=== PATIENT | male | born 1970 | race Caucasian/White ===

== ENCOUNTER 2016-04-01 08:35 | Inpatient (IN) | payer MEDICARE ==
[~2016-04-01] VITALS: Ht 185.4 cm; Wt 77.0 kg
[2016-04-01] VITALS (11 sets, daily range): BP systolic 136–199; BP diastolic 77–109; PULSE 79–115; RESP 16–20; TEMP 98.2–98.3; O2SAT 97–100
[~2016-04-01 08:35] MED LIST: DILA8TAB4 PO; LANTUS2P SQ; NOVOLOGP2 SQ; PROM25TA5 PO; ZOFR8TAB PO
[2016-04-01] MEDS ORDERED: SODIUM CHLOR 0.9% 1000 ML INJ 1,000 ML IV SCH (09:13)
[2016-04-01] MEDS ORDERED: SODIUM CHLORIDE 0.9% FLUSH 5 ML FLUSH IVF PRN (09:15)
[2016-04-01] MEDS ORDERED: PANTOPRAZOLE SODIUM 40 MG VIAL IVP ONE (09:15)
[2016-04-01] MEDS ORDERED: ONDANSETRON HCL 4 MG/2 ML VIAL IM ONE (09:15)
[2016-04-01] MEDS ORDERED: HYDROmorphone HCL PF 1 MG/ML VIAL IM ONE (09:15)
--- NOTE | 2016-04-01 09:28 | PD ---
HPI Chief Complaint: Abdominal Pain Time Seen by Provider: 09:13 Travel History International Travel<30 days: No Contact w/Intl Traveler<30days: No Traveled to known affect area: No History of Present Illness HPI 45-year-old male with history of chronic gastroparesis and abdominal pains, had previously had a vagal stimulator placed, has had worsening of symptoms since placement, has had multiple PICC lines, central lines, and IV lines in the past , was seen yesterday for nausea, vomiting, released with symptomatic relief. He returns today because he states that he has not had a chance to fill the medications but states that he is feeling worse again, very nauseous, vomiting 1 this morning, and having worsening in symptoms again. He denies any fevers or any new symptoms. Modifying Factors: None Associated Signs & Symptoms: Abdominal pains, nausea, vomiting Risk Factors: History of chronic abdominal pains and gastroparesis PFSH Past Medical History Diabetes: Yes Patient Takes Glucophage: No Gastrointestinal Disorders: Yes (GASTROPARESIS) Immunizations Current: Yes Tetanus Vaccination: > 5 Years Influenza Vaccination: No Past Surgical History Abdominal Surgery: Yes (G&J TUBE PLACED AND REMOVED; experimental stimulator for gastroparesis) Body Medical Devices: EXPERIMENTAL STIMULATOR Other Surgery: Yes (LEFT CHEST PORT REMOVED R/T INFECTION, MULTIPLE PICC LINES INSERTED&REMOVED) Social History Alcohol Use: No Tobacco Use: Yes (occasional) Substance Use: No Allergies-Medications (Allergen,Severity, Reaction): Coded Allergies: Compazine (Verified Allergy, Severe, Anaphylaxis, 04/01/16) Reglan (Verified Allergy, Severe, Anaphylaxis, 04/01/16) Adhesives (Verified Allergy, Intermediate, Rash, 04/01/16) "PEELS MY SKIN OFF" Uncoded Allergies: TEGADERM (Allergy, Severe, 05/19/15) "PEELS MY SKIN OFF" Reported Meds & Prescriptions Reported Meds & Active Scripts Active Reported Novolog Inj (Insulin Aspart) 1,000 Unit/10 Ml Vial 0 SQ DIRECTED Sliding Scale as directed. Lantus Inj (Insulin Glargine) 1,000 Unit/10 Ml Vial 20 Units SQ HS Phenergan (Promethazine HCl) 25 Mg Tab 25 Mg PO Q6H PRN Zofran (Ondansetron HCl) 8 Mg Tab 8 Mg PO TID Dilaudid (Hydromorphone HCl) 8 Mg Tab 8 Mg PO Q4HR PRN Review of Systems Except as stated in HPI: all other systems reviewed are Neg Physical Exam Narrative GENERAL: Well-nourished, well-developed middle age white male patient in mild distress. SKIN: Warm and dry. HEAD: Normocephalic. EYES: No scleral icterus. No injection or drainage. NECK: Supple, trachea midline. CARDIOVASCULAR: Regular rate and rhythm without murmurs, gallops, or rubs. RESPIRATORY: Breath sounds equal bilaterally. No accessory muscle use. GASTROINTESTINAL: Abdomen soft, non-tender, nondistended. MUSCULOSKELETAL: No cyanosis, or edema. BACK: Nontender without obvious deformity. No CVA tenderness. Data Data Last Documented VS Vital Signs Date Time Temp Pulse Resp B/P Pulse Ox O2 Delivery O2 Flow Rate FiO2 04/01/16 12:41 95 18 187/90 97 Room Air 04/01/16 08:43 98.2 Orders Complete Blood Count With Diff (04/01/16 09:13) Comprehensive Metabolic Panel (04/01/16 09:13) Lipase (04/01/16 09:13) Iv Access Insert/Monitor (04/01/16 09:13) Ecg Monitoring (04/01/16 09:13) Oximetry (04/01/16 09:13) Pantoprazole Inj (Protonix Inj) (04/01/16 09:15) Sodium Chlor 0.9% 1000 Ml Inj (Ns 1000 M (04/01/16 09:13) Sodium Chloride 0.9% Flush (Ns Flush) (04/01/16 09:15) Ondansetron Inj (Zofran Inj) (04/01/16 09:15) Hydromorphone Pf Inj (Dilaudid Pf Inj) (04/01/16 09:15) Consult Vascular Access Team (04/01/16 ) Vascular Access (04/01/16 09:44) Vascular Poc Ultrasound (04/01/16 ) Hydromorphone Pf Inj (Dilaudid Pf Inj) (04/01/16 10:45) Vascular Poc Ultrasound (04/01/16 ) Diphenhydramine Inj (Benadryl Inj) (04/01/16 12:30) Admit Order (Ed Use Only) (04/01/16 13:42) Labs Laboratory Tests Test 04/01/16 12:00 White Blood Count 7.6 TH/MM3 Red Blood Count 3.64 MIL/MM3 Hemoglobin 10.0 GM/DL Hematocrit 30.1 % Mean Corpuscular Volume 82.8 FL Mean Corpuscular Hemoglobin 27.4 PG Mean Corpuscular Hemoglobin 33.1 % Concent Red Cell Distribution Width 14.8 % Platelet Count 410 TH/MM3 Mean Platelet Volume 7.6 FL Neutrophils (%) (Auto) 76.4 % Lymphocytes (%) (Auto) 14.9 % Monocytes (%) (Auto) 6.3 % Eosinophils (%) (Auto) 1.2 % Basophils (%) (Auto) 1.2 % Neutrophils # (Auto) 5.8 TH/MM3 Lymphocytes # (Auto) 1.1 TH/MM3 Monocytes # (Auto) 0.5 TH/MM3 Eosinophils # (Auto) 0.1 TH/MM3 Basophils # (Auto) 0.1 TH/MM3 CBC Comment DIFF FINAL Differential Comment Sodium Level 136 MEQ/L Potassium Level 4.1 MEQ/L Chloride Level 99 MEQ/L Carbon Dioxide Level 29.5 MEQ/L Anion Gap 8 MEQ/L Blood Urea Nitrogen 11 MG/DL Creatinine 1.11 MG/DL Estimat Glomerular Filtration 72 ML/MIN Rate Random Glucose 295 MG/DL Calcium Level 8.3 MG/DL Total Bilirubin 0.4 MG/DL Aspartate Amino Transf 24 U/L (AST/SGOT) Alanine Aminotransferase 24 U/L (ALT/SGPT) Alkaline Phosphatase 128 U/L Total Protein 6.2 GM/DL Albumin 2.9 GM/DL Lipase 66 U/L MDM Medical Decision Making Medical Screen Exam Complete: Yes Emergency Medical Condition: Yes Medical Record Reviewed: Yes Interpretation(s) Laboratory Tests Test 04/01/16 12:00 Red Blood Count 3.64 MIL/MM3 (4.50-5.90) Hemoglobin 10.0 GM/DL (13.0-17.0) Hematocrit 30.1 % (39.0-51.0) Neutrophils (%) (Auto) 76.4 % (16.0-70.0) Estimat Glomerular Filtration 72 ML/MIN (>89) Rate Random Glucose 295 MG/DL (74-106) Calcium Level 8.3 MG/DL (8.5-10.1) Alkaline Phosphatase 128 U/L (45-117) Total Protein 6.2 GM/DL (6.4-8.2) Albumin 2.9 GM/DL (3.4-5.0) Lipase 66 U/L (73-393) Differential Diagnosis Abdominal pain, nausea and vomitinggastroparesis versus acute on chronic abdominal pain versus dehydration versus metabolic issues versus obstruction versus malingering Narrative Course Lab work did not show any signs of significant metabolic issues at this point. Patient had refused to get x-rays done, complaining that he has had multiple x- ray films in the past. Abdomen is not distended on exam. However, patient is returning for the second day regarding this issue, appears to have acute on chronic abdominal pain, required multiple medication doses. At this point, my plan would be to admit him as an observation for pain control and further evaluation. Case was discussed with family practice resident service for admission. Diagnosis Primary Impression: Acute abdominal pain Admitting Information Admitting Physician Requests: Admit Mally Feliciano MD Apr 01, 2016 09:28
[2016-04-01] MEDS ORDERED: HYDROmorphone HCL PF 2 MG/ML VIAL IV PUSH ONE (10:45)
[2016-04-01 12:20] LABS: AUTOMATED NEUTROPHIL # 5.8 TH/MM3 (1.8-7.7); BASOPHIL # 0.1 TH/MM3 (0-0.2); BASOPHIL % 1.2 % (0.0-2.0); EOSINOPHIL # 0.1 TH/MM3 (0-0.4); EOSINOPHIL % 1.2 % (0.0-4.0); HEMATOCRIT 30.1 % (39.0-51.0); HEMO FLAGS DIFF FINAL; LYMPH % 14.9 % (9.0-44.0); LYMPHOCYTE # 1.1 TH/MM3 (1.0-4.8); MEAN CELL VOLUME 82.8 FL (80.0-100.0); MEAN CORPUSCULAR HEMOGLOBIN 27.4 PG (27.0-34.0); MEAN CORPUSCULAR HGB CONC 33.1 % (32.0-36.0); MONO % 6.3 % (0.0-8.0); NEUT % 76.4 % (16.0-70.0); PLATELET COUNT 410 TH/MM3 (150-450); RED BLOOD COUNT 3.64 MIL/MM3 (4.50-5.90); RED CELL DISTRIBUTION WIDTH 14.8 % (11.6-17.2); WHITE BLOOD COUNT 7.6 TH/MM3 (4.0-11.0)
[2016-04-01] MEDS ORDERED: diphenhydrAMINE HCL 50 MG/ML VIAL IV PUSH ONE (12:30)
[2016-04-01 12:37] LABS: ALT (GPT) 24 U/L (12-78); ANION GAP 8 MEQ/L (5-15); AST (GOT) 24 U/L (15-37); BICARBONATE 29.5 MEQ/L (21.0-32.0); BLOOD UREA NITROGEN 11 MG/DL (7-18); CHLORIDE 99 MEQ/L (98-107); GLOMERULAR FILTRATION RATE 72 ML/MIN (>89); POTASSIUM 4.1 MEQ/L (3.5-5.1); SODIUM (NA) 136 MEQ/L (136-145)
[2016-04-01 12:39] LABS: ALKALINE PHOSPHATASE 128 U/L (45-117); TOTAL BILIRUBIN ADULT 0.4 MG/DL (0.2-1.0)
[2016-04-01] MEDS ORDERED: HYDROmorphone HCL PF 1 MG/ML VIAL IV PUSH ONE (14:15)
[2016-04-01] MEDS ORDERED: ONDANSETRON HCL 4 MG/2 ML VIAL IVP PRN (14:45)
[2016-04-01] MEDS ORDERED: NALOXONE HCL 0.4 MG/ML AMP IV PRN (14:45)
--- NOTE | 2016-04-01 14:57 | HHI.HP ---
HPI Service Family Medicine Primary Care Physician No Primary Care Physician Admission Diagnosis acute on chronic abdominal pain/pain control Diagnoses: International Travel<30 Days: No Contact w/Intl Traveler<30days: No Known Affected Area: No History of Present Illness 45-year-old male with a past medical history significant for chronic abdominal pain secondary to vagal stimulator placement for gastroparesis from diabetes presents to the ED for the second day in a row with acute on chronic abdominal pain. The patient lives in [place] and had his second vagal stimulator placed 2 years ago. He endorses 3 days of dry heaving/emesis that is bilious but nonbloody. He states he often has these episodes of acute on chronic abdominal pain that require hospitalization and management with pain medications. He is on oral Dilaudid at home, 8 mg 34 times per day. Patient denies any chest pain /shortness of breath. In the emergency department, the patient refused any imaging. Labs were unremarkable. (Doris Paz MD R3) Review of Systems Other Denies fever or chills Denies blurry vision, otorrhea, rhinorrhea Denies sore throat and cough No chest pain, palpitations, shortness of breath Positive abdominal pain per history of present illness Denies constipation/diarrhea. Nausea/vomiting per history of present illness Denies muscle pain/weakness No rashes (Doris Paz MD R3) Past Family Social History Past Medical History Type 1 diabetes mellitus Gastroparesis status post vagal stimulator placement Past Surgical History Physical stimulator placement 2 G-tube placement G-tube placement Port placement Left femur repair Reported Medications Reported Meds & Active Scripts Active Reported Novolog Inj (Insulin Aspart) 1,000 Unit/10 Ml Vial 0 SQ DIRECTED Sliding Scale as directed. Lantus Inj (Insulin Glargine) 1,000 Unit/10 Ml Vial 20 Units SQ HS Phenergan (Promethazine HCl) 25 Mg Tab 25 Mg PO Q6H PRN Zofran (Ondansetron HCl) 8 Mg Tab 8 Mg PO TID Dilaudid (Hydromorphone HCl) 8 Mg Tab 8 Mg PO Q4HR PRN (Doris Paz MD R3) Allergies: Coded Allergies: Compazine (Verified Allergy, Severe, Anaphylaxis, 04/01/16) Reglan (Verified Allergy, Severe, Anaphylaxis, 04/01/16) Adhesives (Verified Allergy, Intermediate, Rash, 04/01/16) "PEELS MY SKIN OFF" Uncoded Allergies: TEGADERM (Allergy, Severe, 05/19/15) "PEELS MY SKIN OFF" Family History Both parents are healthy. Social History Patient lives in [place]. He has not worked in many years and states that he remains on medical leave secondary to his medical issues. He occasionally smokes cigarettes. He denies any alcohol. He states that he has occasionally tried marijuana for his abdominal issues but that this has not worked. He denies all other illicit drugs. (Doris Paz MD R3) Physical Exam Vital Signs Vital Signs Date Time Temp Pulse Resp B/P Pulse Ox O2 Delivery O2 Flow Rate FiO2 04/01/16 12:41 95 18 187/90 97 Room Air 04/01/16 12:04 85 18 199/109 98 Room Air 04/01/16 12:03 18 98 Room Air 04/01/16 11:06 90 18 179/101 97 Room Air 04/01/16 08:57 88 18 192/109 100 Room Air 04/01/16 08:43 98.2 97 20 184/105 99 Room Air Physical Exam Gen.: No acute distress Head: Normocephalic. Atraumatic. EENT: Pupils equal round and reactive to light. Nose without drainage. Airway intact. Throat without injection. Cardiovascular: Regular rate and rhythm. No murmurs, rubs or gallops. Respiratory: Lungs clear to auscultation bilaterally. No wheezes or rhonchi. Abdomen: Soft, nondistended. Tenderness to palpation throughout, worse in left upper quadrant. No peritoneal signs. Musculoskeletal: No gross deformities. No edema. Skin: No obvious rashes or erythema. Neuro: Sensory and motor grossly intact. Cranial nerves II through XII grossly intact. Psych: Appropriate mood and affect Laboratory Laboratory Tests Test 04/01/16 12:00 White Blood Count 7.6 Red Blood Count 3.64 Hemoglobin 10.0 Hematocrit 30.1 Mean Corpuscular Volume 82.8 Mean Corpuscular Hemoglobin 27.4 Mean Corpuscular Hemoglobin 33.1 Concent Red Cell Distribution Width 14.8 Platelet Count 410 Mean Platelet Volume 7.6 Neutrophils (%) (Auto) 76.4 Lymphocytes (%) (Auto) 14.9 Monocytes (%) (Auto) 6.3 Eosinophils (%) (Auto) 1.2 Basophils (%) (Auto) 1.2 Neutrophils # (Auto) 5.8 Lymphocytes # (Auto) 1.1 Monocytes # (Auto) 0.5 Eosinophils # (Auto) 0.1 Basophils # (Auto) 0.1 CBC Comment DIFF FINAL Differential Comment Sodium Level 136 Potassium Level 4.1 Chloride Level 99 Carbon Dioxide Level 29.5 Anion Gap 8 Blood Urea Nitrogen 11 Creatinine 1.11 Estimat Glomerular Filtration 72 Rate Random Glucose 295 Calcium Level 8.3 Total Bilirubin 0.4 Aspartate Amino Transf 24 (AST/SGOT) Alanine Aminotransferase 24 (ALT/SGPT) Alkaline Phosphatase 128 Total Protein 6.2 Albumin 2.9 Lipase 66 (Doris Paz MD R3) Result Diagram: 04/01/16 1200 04/01/16 1200 Assessment and Plan Assessment and Plan 45-year-old male with chronic gastroparesis and abdominal pain from physical stimuli to her placement and diabetes mellitus presents to the emergency department with an acute exacerbation of his abdominal pain. 1. Abdominal pain with emesis. Patient initially refused all imaging in the emergency department, however has now agreed to an abdominal series. He will not have a CT scan despite my advising him that this should be done to rule out obstruction and other abdominal pathologies. He states that he has had 14 CT scans in the past and his previous new car inspector advised him not to have any more. Patient with tolerance to pain medication as he takes by mouth Dilaudid at home. Dilaudid 2 mg every 2 hours when necessary pain Abdominal x-rays pending Regular diet which patient requested as he states he knows what is best for him to eat 2. Diabetes mellitus, type I. Patient on 20 units of Lantus daily at bedtime and sliding scale NovoLog at home. Continue Lantus High dose NovoLog sliding scale insulin 3. FEN Hep-Lock IV as patient's initial labs show no abnormalities or dehydration Regular diet per patient's request Anticoagulation with heparin 5000 units every 8 hours Code Status Full code (Doris Paz MD R3) Problem List: (1) Chronic abdominal pain Status: Chronic (2) Acute abdominal pain Status: Acute (3) Diabetes mellitus type 1 Status: Chronic (Doris Paz MD R3) Doris Paz MD R3 Apr 01, 2016 14:57 Bibiana Golden MD Apr 03, 2016 08:42
[2016-04-01] MEDS: HYDROmorphone HCL PF 2 MG/ML VIAL IV PUSH PRN ×5 (15:21→23:47)
[2016-04-01] MEDS: INSULIN ASPART SUPPLEMENTAL SCALE SQ SCH ×2 (16:00→21:00)
[2016-04-01] MEDS: HEPARIN SODIUM - SQ 10,000 UNITS/ML VIAL SQ SCH (16:00)
[2016-04-01] MEDS: diphenhydrAMINE HCL 50 MG/ML VIAL IV PUSH PRN ×2 (16:39→21:04)
[2016-04-01] MEDS ORDERED: cloNIDine HCL 0.1 MG TAB PO PRN (17:30)
[2016-04-01] MEDS: SODIUM CHLORIDE 0.9% FLUSH 5 ML FLUSH FLUSH SCH (19:45)
--- NOTE | 2016-04-01 20:25 | RADRPT ---
EXAM DATE/TIME: 04/01/2016 19:08 [facility] COMPARISON: No previous studies available for comparison. INDICATIONS : Abdominal pain for two days. MEDICAL HISTORY : None. SURGICAL HISTORY : Stimulator. ENCOUNTER: Initial ACUITY: 2 days PAIN SCORE: 8/10 LOCATION: Bilateral upper quadrant abdomen. FINDINGS: There is a 3 mm calcification projecting over the right kidney. The bowel gas pattern is normal. Free air is not seen. There is some increased density at the medial right lung base which may represent some degree of atelectasis or consolidation. The patient has an electronic device pro jecting over the medial left midabdomen. Surgical hardware is seen at the proximal left femur. CONCLUSION: 1. 3 mm calcification projecting over the right kidney. 2. Focal area of consolidation or atelectasis at the medial right lung base. New Garvin MD on April 01, 2016 at 20:12 Board Certified Radiologist. This report was verified electronically.
[2016-04-01] MEDS ORDERED: INSULIN DETEMIR 100 UNITS/ML VIAL SQ SCH (21:00)
[2016-04-01] MEDS ORDERED: GLUCAGON 1 MG/ML VIAL IM ONE (22:45)
[2016-04-01] MEDS ORDERED: DEXTROSE 50% IN WATER 50 ML VIAL(D50) IV PUSH PRN (22:45)
[2016-04-01] MEDS: INSULIN DETEMIR 100 UNITS/ML VIAL SQ SCH (23:19)
[2016-04-02 00:05] VITALS: BP 151/94; PULSE 106; RESP 16; TEMP 98.1; O2SAT 96
[2016-04-02] MEDS: HYDROmorphone HCL PF 2 MG/ML VIAL IV PUSH PRN ×10 (02:04→23:18)
[2016-04-02] MEDS: diphenhydrAMINE HCL 50 MG/ML VIAL IV PUSH PRN ×5 (02:11→22:36)
[2016-04-02 04:17] VITALS: BP 137/82; PULSE 87; RESP 16; TEMP 97.7; O2SAT 98
[2016-04-02] MEDS: INSULIN ASPART SUPPLEMENTAL SCALE SQ SCH ×4 (06:11→23:16)
[2016-04-02 08:00] VITALS: BP 155/84; PULSE 80; RESP 18; TEMP 96.6; O2SAT 99
[2016-04-02] MEDS: HEPARIN SODIUM - SQ 10,000 UNITS/ML VIAL SQ SCH ×3 (08:00→16:00)
[2016-04-02] MEDS: SODIUM CHLORIDE 0.9% FLUSH 5 ML FLUSH FLUSH SCH ×2 (08:45→21:23)
[2016-04-02] MEDS: GLUCAGON 1 MG/ML VIAL OTHER PRN ×2 (09:36→15:07)
[2016-04-02 12:00] VITALS: BP 170/110; PULSE 86; RESP 18; TEMP 97; O2SAT 98
--- NOTE | 2016-04-02 12:57 | RADRPT ---
EXAM DATE/TIME: 04/02/2016 12:20 [facility] COMPARISON: No previous studies available for comparison. INDICATIONS : Cough. MEDICAL HISTORY : Gastroparesis. SURGICAL HISTORY : abdominal pain stimulator ENCOUNTER: Initial ACUITY: 1 day PAIN SCORE: 0/10 LOCATION: Bilateral chest FINDINGS: There is a prominence of bronchovascular markings overlying the lower thoracic spine on lateral view which could represent a minimal or early infiltrate likely in the left lower lobe.. CONCLUSION: Questionable minimal early infiltrate left lower lobe as described Colby Robert MD on April 02, 2016 at 12:54 Board Certified Radiologist. This report was verified electronically.
[2016-04-02] MEDS ORDERED: LORazepam 0.5 MG TAB PO PRN (15:00)
--- NOTE | 2016-04-02 15:14 | HHI.FPPN ---
Subjective Subjective Patient seen and examined with the resident team. Case reviewed and discussed Please refer to resident H&P for further details regarding HPI, ROS, PMH, SurgHx , SocHx, and FH In summary, patient is a 45yoM with a history of insulin-dependent DM with secondary gastroparesis presenting with recurrent, intractable nausea, vomiting and abdominal pain He is seen in his hospital room this am. He is quite anxious appearing and concerned about getting enough hardboiled eggs from the cafeteria. He reports his abdominal pain is improved from admission. No emesis overnight. [facility] Objective Objective Last Impressions Chest X-Ray 04/02/16 0000 Signed Impressions: Service Date/Time: Saturday, April 02, 2016 12:20 - CONCLUSION: Questionable minimal early infiltrate left lower lobe as described Colby Robert MD Abdomen X-Ray 04/01/16 0000 Signed Impressions: Service Date/Time: Friday, April 01, 2016 19:08 - CONCLUSION: 1. 3 mm calcification projecting over the right kidney. 2. Focal area of consolidation or atelectasis at the medial right lung base. New Garvin MD Vital Signs 04/01/16 04/01/16 04/01/16 04/01/16 15:26 16:32 17:25 17:40 Pulse 79 81 85 Resp 18 18 18 18 B/P 190/99 180/91 174/101 Pulse Ox 99 99 99 O2 Delivery Room Air Room Air Room Air 04/01/16 04/01/16 04/02/16 04/02/16 18:29 20:13 00:05 04:17 Temp 98.3 98.3 98.1 97.7 Pulse 115 103 106 87 Resp 16 18 16 16 B/P 158/96 136/77 151/94 137/82 Pulse Ox 97 97 96 98 04/02/16 04/02/16 08:00 12:00 Temp 96.6 97.0 Pulse 80 86 Resp 18 18 B/P 155/84 170/110 Pulse Ox 99 98 INTAKE & OUTPUT 04/02/16 07:00 Intake Total 1200 ml Output Total 850 ml Balance 350 ml Physical exam GENERAL: Thin male, mildly anxious. SKIN: Warm and dry. Mild pallor HEAD: Normocephalic. AT EYES: No scleral icterus. No injection or drainage. ENT: Op clear. Poor dentition. MM slightly dry NECK: Supple, trachea midline. No JVD or lymphadenopathy. CARDIOVASCULAR: Regular rate and rhythm without murmurs, gallops, or rubs. RESPIRATORY: Mild bibasilar crackles. no wheezing, no increased effort. No accessory muscle use. GASTROINTESTINAL: Abdomen soft,mild diffuse tenderness, nondistended. Palpable stimulator over abdomen. MUSCULOSKELETAL: No cyanosis, or edema. BACK: Nontender without obvious deformity. No CVA tenderness. NEURO: Awake and alert. Normal speech. CN grossly intact Assessment Assessment 45yoM admitted with: Intractable abdominal pain Gastroparesis Insulin-dependent DM Intractable emesis Inability to tolerate PO PNA, CAP PLAN PLAN Pain control ABD XR CXR Empiric antibiotic therapy for CAP Dietary consult Consider [facility] and/or request records from [place] (prior hospitalizations) Heparin for DVT proph Patient seen and examined. Case reviewed and discussed Agree with plan of care as discussed with me and documented in the resident note. Bibiana Golden MD Apr 02, 2016 15:14
[2016-04-02 16:00] VITALS: BP 154/76; PULSE 84; RESP 20; TEMP 96.8; O2SAT 94
[2016-04-02] MEDS ORDERED: cefTRIAXone INJ 1,000 MG in SODIUM CHLORIDE 0.9% INJ 100 ML IV SCH (16:00)
[2016-04-02] MEDS ORDERED: INSULIN ASPART SUPPLEMENTAL SCALE SQ SCH (16:00)
[2016-04-02 20:00] VITALS: BP 171/88; PULSE 95; RESP 18; TEMP 97.1; O2SAT 95
[2016-04-02] MEDS: INSULIN DETEMIR 100 UNITS/ML VIAL SQ SCH (23:16)
[2016-04-03] VITALS (8 sets, daily range): BP systolic 127–186; BP diastolic 80–103; PULSE 85–96; RESP 16–20; TEMP 97.2–98.6; O2SAT 96–100
[2016-04-03] MEDS: HYDROmorphone HCL PF 2 MG/ML VIAL IV PUSH PRN ×6 (01:43→13:03)
[2016-04-03] MEDS: diphenhydrAMINE HCL 50 MG/ML VIAL IV PUSH PRN ×5 (02:51→20:14)
[2016-04-03] MEDS: INSULIN ASPART SUPPLEMENTAL SCALE SQ SCH ×4 (06:30→21:00)
[2016-04-03] MEDS: HEPARIN SODIUM - SQ 10,000 UNITS/ML VIAL SQ SCH ×3 (08:00→16:00)
[2016-04-03] MEDS: SODIUM CHLORIDE 0.9% FLUSH 5 ML FLUSH FLUSH SCH ×2 (09:01→20:15)
[2016-04-03] MEDS: INSULIN DETEMIR 100 UNITS/ML VIAL SQ SCH ×2 (09:03→21:00)
--- NOTE | 2016-04-03 09:53 | RADRPT ---
EXAM DATE/TIME: 04/03/2016 08:45 [facility] COMPARISON: CHEST PA & LAT, April 02, 2016, 12:20. INDICATIONS : Infiltrate. MEDICAL HISTORY : None. SURGICAL HISTORY : None. ENCOUNTER: Initial ACUITY: 1 day PAIN SCORE: Non-responsive. LOCATION: Bilateral chest FINDINGS: Portable AP view of the chest demonstrates a normal-sized cardiac silhouette. Lungs are underinflated with mild atelectasis at the bases. No effusion, consolidation, or pneumothorax is identified. Bones and soft tissues demonstrate no acute finding. CONCLUSION: Underinflated examination with mild atelectasis at lung bases. Otherwise, no acute cardiopulmonary ab normality is identified. New Mari MD on April 03, 2016 at 9:50 Board Certified Radiologist. This report was verified electronically.
[2016-04-03] MEDS: GLUCAGON 1 MG/ML VIAL OTHER PRN ×2 (11:18→23:22)
--- NOTE | 2016-04-03 11:50 | HHI.FPPN ---
Subjective Remarks Mr. Bean was afebrile with HTN overnight. Patient with hyperglycemia this morning (488mg/dl); decreased subsequently. Patient reports continued abdominal pain. No other concerns reported. Patient expressed some frustration at obtaining prior records but provided prior hospital information. (John Westbrook MD R2) Objective Vitals Vital Signs Date Time Temp Pulse Resp B/P Pulse Ox O2 Delivery O2 Flow Rate FiO2 04/03/16 11:38 98.2 96 20 127/90 96 04/03/16 07:50 97.2 87 20 178/97 98 04/03/16 04:00 97.6 93 18 178/102 100 04/03/16 00:00 97.6 85 18 140/86 98 04/02/16 20:00 97.1 95 18 171/88 95 04/02/16 16:00 96.8 84 20 154/76 94 04/02/16 12:00 97.0 86 18 170/110 98 I/O 04/02/16 04/02/16 04/02/16 04/03/16 04/03/16 04/03/16 07:00 15:00 23:00 07:00 15:00 23:00 Intake Total 550 ml 960 ml 150 ml 240 ml Balance 550 ml 960 ml 150 ml 240 ml Intake Oral 550 ml 960 ml 150 ml 240 ml # Voids 6 1 1 # Bowel Movements 0 (John Westbrook MD R2) Result Diagram: 04/01/16 1200 04/01/16 1200 Imaging Last Impressions Chest X-Ray 04/03/16 0000 Signed Impressions: Service Date/Time: March 08:45 - CONCLUSION: Underinflated examination with mild atelectasis at lung bases. Otherwise, no acute cardiopulmonary abnormality is identified. New Mari MD Abdomen X-Ray 04/01/16 0000 Signed Impressions: Service Date/Time: Friday, April 01, 2016 19:08 - CONCLUSION: 1. 3 mm calcification projecting over the right kidney. 2. Focal area of consolidation or atelectasis at the medial right lung base. New Garvin MD Objective Remarks Gen.: No acute distress Head: Normocephalic. Atraumatic. Cardiovascular: Regular rate and rhythm. No murmurs Respiratory: Lungs clear to auscultation bilaterally. No wheezes or rhonchi. Abdomen: Soft, nondistended. Mild tenderness to palpation; no peritoneal signs Musculoskeletal: No gross deformities. No edema. Skin: No obvious rashes or erythema. Neuro: Sensory and motor grossly intact. Cranial nerves grossly intact. Psych: Appropriate mood and affect (John Westbrook MD R2) A/P Assessment and Plan 45-year-old male with chronic gastroparesis: (John Westbrook MD R2) Attending Attestation Patient seen and examined. Case reviewed and discussed Agree with plan of care as discussed with me and documented in the resident note. (Bibiana Golden MD) Problem List: (1) Chronic abdominal pain Status: Chronic Plan: Dilaudid 2 mg every 2 hours when necessary pain -Will attempt to obtain records from prior hospitalization Impression: Abdominal pain with emesis. Patient initially refused all imaging in the emergency department, however has now agreed to an abdominal series. He will not have a CT scan despite my advising him that this should be done to rule out obstruction and other abdominal pathologies. He states that he has had 14 CT scans in the past and his previous infection control preventionist advised him not to have any more. Patient with tolerance to pain medication as he takes by mouth Dilaudid at home. Abdomen XR- 3mm calcification over R kidney. Focal consolidation or atelectasis at R medial lung base (2) Diabetes mellitus type 1 Status: Chronic Plan: Impression: Patient on Lantus 20 U qHS at home. -Levemir 10 U BID -Low dose SSI -Glucagon for hypoglycemia per patient request Blood glucoses have fluctuated significantly during admission (488mg/dl- 33 mg/ dl) (3) DVT Prophylaxis Status: Acute Plan: Bilateral SCD's (4) Fluids, Electrolytes, and Nutrition Status: Acute Plan: Diet: Regular basic Fluids: None Electrolytes: Monitor and replete as needed (John Westbrook MD R2) John Westbrook MD R2 Apr 03, 2016 11:50 Bibiana Golden MD Apr 04, 2016 12:32 (3) DVT Prophylaxis Status: Acute Plan: Bilateral SCD's (4) Fluids, Electrolytes, and Nutrition Status: Acute Plan: Diet: Regular basic Fluids: None Electrolytes: Monitor and replete as needed (John Westbrook MD R2) John Westbrook MD R2 Apr 03, 2016 11:50 Bibiana Golden MD Apr 04, 2016 12:32
[2016-04-03] MEDS ORDERED: HYDROmorphone HCL PF 2 MG/ML VIAL IV PUSH PRN ×2 (15:00→17:00)
[2016-04-03] MEDS ORDERED: HYDROmorphone HCL PF 1 MG/ML VIAL IV PUSH ONE (15:45)
[2016-04-03] MEDS ORDERED: AZITHROMYCIN 250 MG TAB PO SCH (17:00)
[2016-04-03] MEDS: LEVOFLOXACIN 750 MG PREMIX INJ 150 ML IV SCH (17:51)
[2016-04-03] MEDS: HYDROmorphone HCL PF 1 MG/ML VIAL IV PUSH PRN ×3 (18:14→22:21)
[2016-04-04] VITALS (7 sets, daily range): BP systolic 129–193; BP diastolic 62–110; PULSE 58–113; RESP 16–18; TEMP 97.4–98.7; O2SAT 94–100
[2016-04-04] MEDS: HYDROmorphone HCL PF 1 MG/ML VIAL IV PUSH PRN ×11 (00:23→22:12)
[2016-04-04] MEDS: diphenhydrAMINE HCL 50 MG/ML VIAL IV PUSH PRN ×6 (00:23→23:44)
[2016-04-04] MEDS: INSULIN ASPART SUPPLEMENTAL SCALE SQ SCH ×4 (06:47→20:15)
[2016-04-04] MEDS: HEPARIN SODIUM - SQ 10,000 UNITS/ML VIAL SQ SCH ×4 (08:00→23:40)
[2016-04-04] MEDS: SODIUM CHLORIDE 0.9% FLUSH 5 ML FLUSH FLUSH SCH ×2 (09:00→20:16)
[2016-04-04] MEDS: amLODIPine BESYLATE 5 MG TAB PO SCH (09:00)
[2016-04-04] MEDS: INSULIN DETEMIR 100 UNITS/ML VIAL SQ SCH ×2 (09:00→20:08)
[2016-04-04 09:50] LABS: AUTOMATED NEUTROPHIL # 5.3 TH/MM3 (1.8-7.7); BASOPHIL # 0.1 TH/MM3 (0-0.2); BASOPHIL % 1.1 % (0.0-2.0); EOSINOPHIL # 0.2 TH/MM3 (0-0.4); EOSINOPHIL % 2.3 % (0.0-4.0); HEMATOCRIT 35.6 % (39.0-51.0); HEMO FLAGS DIFF FINAL; LYMPH % 21.4 % (9.0-44.0); LYMPHOCYTE # 1.7 TH/MM3 (1.0-4.8); MEAN CORPUSCULAR HEMOGLOBIN 26.9 PG (27.0-34.0); MEAN CORPUSCULAR HGB CONC 32.4 % (32.0-36.0); MONO % 7.1 % (0.0-8.0); NEUT % 68.1 % (16.0-70.0); PLATELET COUNT 474 TH/MM3 (150-450); RED BLOOD COUNT 4.29 MIL/MM3 (4.50-5.90); RED CELL DISTRIBUTION WIDTH 14.8 % (11.6-17.2); WHITE BLOOD COUNT 7.8 TH/MM3 (4.0-11.0)
[2016-04-04 10:11] LABS: BICARBONATE 30.7 MEQ/L (21.0-32.0); POTASSIUM 3.8 MEQ/L (3.5-5.1)
--- NOTE | 2016-04-04 10:26 | HHI.FPPN ---
Subjective Remarks Mr. Bean was afebrile and hypertensive overnight; patient had max SB P193 ( he declined PRN clonidine). Per EMR, patient had some low blood glucoses to low of 62 at 2326 03/04; patient had glucagon administered for these. Glucose of 262 this morning at 0649 ; 5 U low SS given. Patient voiding and stooling normally per EMR. Patient reports abdominal pain, and expresses frustration that his Dilaudid was decreased to 1mg IV q2hrs. Patient reports mild improvement in his abdominal symptoms overall, and estimates ~30% improvement since admission. Patient does not report shortness of breath. (John Westbrook MD R2) Objective Vitals Vital Signs Date Time Temp Pulse Resp B/P Pulse Ox O2 Delivery O2 Flow Rate FiO2 04/04/16 09:31 20 04/04/16 04:14 98.3 66 18 193/109 98 04/04/16 00:00 97.9 89 17 168/89 99 04/03/16 20:54 98.5 92 16 162/90 98 04/03/16 17:51 150/88 04/03/16 15:30 98.6 88 20 186/103 99 Automatic Cuff 04/03/16 13:10 140/80 04/03/16 11:38 98.2 96 20 127/90 96 (John Westbrook MD R2) Result Diagram: 04/04/16 0920 04/04/16 0920 Imaging Last Impressions Chest X-Ray 04/03/16 0000 Signed Impressions: Service Date/Time: March 08:45 - CONCLUSION: Underinflated examination with mild atelectasis at lung bases. Otherwise, no acute cardiopulmonary abnormality is identified. New Mari MD Abdomen X-Ray 04/01/16 0000 Signed Impressions: Service Date/Time: Friday, April 01, 2016 19:08 - CONCLUSION: 1. 3 mm calcification projecting over the right kidney. 2. Focal area of consolidation or atelectasis at the medial right lung base. New Garvin MD Objective Remarks Gen.: No acute distress Cardiovascular: Grossly normal peripheral perfusion. Respiratory: Lungs clear to auscultation bilaterally; no crackling appreciated. Abdomen: Soft, nondistended. Mild tenderness to palpation; no guarding/wincing Musculoskeletal: No edema. Skin: No obvious rashes or erythema. Appears pale Neuro: Sensory and motor grossly intact. Cranial nerves grossly intact. Psych: Patient expressed frustration; was confrontational (John Westbrook MD R2) A/P Assessment and Plan 45-year-old male with chronic gastroparesis: (John Westbrook MD R2) Attending Attestation Patient seen and examined. Case reviewed and discussed Agree with plan of care as discussed with me and documented in the resident note. (Bibiana Golden MD) Problem List: (1) Chronic abdominal pain Status: Chronic Plan: Dilaudid 1 mg every 2 hours when necessary BRKP -Will add Toradol 30mg IV q6 hrs -Will hold and recheck BMP in case NSAID will aggravate renal function -Will add home oral Dilaudid 8mg PO; will make q6hrs -Will attempt to obtain records from prior hospitalization Impression: Abdominal pain with emesis; none during hospitalization. Patient has refused CT scan due to having 14 CT scans. Patient with tolerance to pain medication as he takes by mouth Dilaudid at home. Abdomen XR- 3mm calcification over R kidney. Focal consolidation or atelectasis at R medial lung base (2) Noncompliance Status: Acute Plan: -Attempt to encourage compliance and find common ground -Concern exists for inadequate diagnosis and treatment due to patient refusing care -Will document occurrence report Impression: Patient has refused antibiotic therapy (Levaquin, Azithromycin), laboratory blood work x2, and desire for imaging during hospitalization. This has been associated with patient disrespect towards physician team (3) Diabetes mellitus type 1 Status: Chronic Plan: -Levemir 10 U BID -Low dose SSI -Glucagon for hypoglycemia per patient request Impression: Patient on Lantus 20 U qHS at home. Blood glucoses have fluctuated significantly during admission (488mg/dl- 33 mg/dl) (4) Pneumonia Status: Acute Plan: -Will treat with Levaquin 750mg daily Impression: Patient reports recent respiratory infection. Patient with LLL infiltrate; subsequent AP with underinflation did not show infiltrate Antibiotic History: Ceftriaxone 1gm x2 doses Patient refused prior Azithromycin (5) Acute kidney injury Status: Acute Plan: -Will recheck BMP tomorrow -Will encourage fluid intake -Will start maintenance NS -Monitor I&O -Will initiate Toradol for pain control if Cr improves tomorrow Impression: Cr 0.98 on admission; 1.33 today. Unclear how much patient eating/drinking (6) DVT Prophylaxis Status: Acute Plan: Bilateral SCD's Heparin 5K U q8hrs (7) Fluids, Electrolytes, and Nutrition Status: Acute Plan: Diet: Regular basic Fluids: Maintenance NS Electrolytes: Monitor and replete as needed (John Westbrook MD R2) John Westbrook MD R2 Apr 04, 2016 10:26 Bibiana Golden MD Apr 08, 2016 15:30 Fluids: None Electrolytes: Monitor and replete as needed John Westbrook MD R2 Apr 04, 2016 10:26
[2016-04-04] MEDS ORDERED: HYDROmorphone HCL 4 MG TAB PO PRN (11:45)
[2016-04-04] MEDS: SODIUM CHLOR 0.9% 1000 ML INJ 1,000 ML IV SCH ×2 (13:00→21:33)
[2016-04-04] MEDS: LEVOFLOXACIN 750 MG PREMIX INJ 150 ML IV SCH (18:00)
[2016-04-05] VITALS (7 sets, daily range): BP systolic 135–186; BP diastolic 80–104; PULSE 88–107; RESP 18–20; TEMP 96.2–98.9; O2SAT 94–99
[2016-04-05] MEDS: HYDROmorphone HCL PF 1 MG/ML VIAL IV PUSH PRN ×12 (00:27→23:47)
[2016-04-05] MEDS: diphenhydrAMINE HCL 50 MG/ML VIAL IV PUSH PRN ×5 (04:37→21:45)
[2016-04-05] MEDS: SODIUM CHLOR 0.9% 1000 ML INJ 1,000 ML IV SCH ×3 (05:34→22:41)
[2016-04-05] MEDS: INSULIN ASPART SUPPLEMENTAL SCALE SQ SCH ×4 (06:46→19:52)
[2016-04-05] MEDS: HEPARIN SODIUM - SQ 10,000 UNITS/ML VIAL SQ SCH ×3 (08:00→23:42)
[2016-04-05] MEDS: amLODIPine BESYLATE 5 MG TAB PO SCH ×2 (08:55→09:00)
[2016-04-05] MEDS: INSULIN DETEMIR 100 UNITS/ML VIAL SQ SCH ×2 (08:55→19:51)
[2016-04-05] MEDS: DOCUSATE SODIUM 50 MG/SENNA 8.6 MG TAB PO SCH ×3 (08:56→19:46)
[2016-04-05] MEDS ORDERED: KETOROLAC TROMETHAMINE 60 MG/2 ML (IM) VIAL IM SCH (09:00)
[2016-04-05] MEDS: SODIUM CHLORIDE 0.9% FLUSH 5 ML FLUSH FLUSH SCH ×2 (09:00→19:46)
--- NOTE | 2016-04-05 09:40 | HHI.FPPN ---
Subjective Remarks Mr. Bean was afebrile and persistently hypertensive overnight; patient has been refusing antihypertensives stating that it is due to his pain and that he would like more IV Dilaudid. Patient reports continued abdominal pain, reporting that it is mildly improved since admission. No vomiting reported overnight. Patient states he has not been eating; inconsistent with EMR stating that 80-100% of breakfast and lunch were consumed 04/04. Patient reports normal urine output; urinating "every 10 minutes." Patient does not report shortness of breath. Interview cut short by patient requesting that I leave the room due to increasing his abdominal pain. Objective Vitals Vital Signs Date Time Temp Pulse Resp B/P Pulse Ox O2 Delivery O2 Flow Rate FiO2 04/05/16 07:54 18 04/05/16 07:50 97.0 98 20 186/104 97 04/05/16 04:00 97.7 106 18 174/96 99 04/05/16 00:00 97.7 107 18 179/103 95 04/04/16 20:00 98.7 113 18 136/100 94 04/04/16 16:00 98.1 93 18 191/110 96 04/04/16 16:00 191/110 04/04/16 12:00 98.1 102 16 184/108 98 I/O 04/04/16 04/04/16 04/04/16 04/05/16 04/05/16 04/05/16 06:59 14:59 22:59 06:59 14:59 22:59 Intake Total 1000 ml 1440 ml 1440 ml Balance 1000 ml 1440 ml 1440 ml Intake Oral 1000 ml 1440 ml 1440 ml IV Total 0 ml # Voids 4 4 3 # Bowel Movements 1 0 Result Diagram: 04/04/16 0920 04/04/16 0920 Imaging Last Impressions Chest X-Ray 04/03/16 0000 Signed Impressions: Service Date/Time: March 08:45 - CONCLUSION: Underinflated examination with mild atelectasis at lung bases. Otherwise, no acute cardiopulmonary abnormality is identified. New Mari MD Abdomen X-Ray 04/01/16 0000 Signed Impressions: Service Date/Time: Friday, April 01, 2016 19:08 - CONCLUSION: 1. 3 mm calcification projecting over the right kidney. 2. Focal area of consolidation or atelectasis at the medial right lung base. New Garvin MD Objective Remarks Gen.: No acute distress ENT: Poor dentition Cardiovascular: Grossly normal peripheral perfusion. Respiratory: Lungs clear to auscultation bilaterally; no crackling appreciated. Abdomen: Soft, nondistended. Mild tenderness to palpation; no guarding/wincing Musculoskeletal: No edema. Skin: No obvious rashes or erythema. Appears pale Neuro: Sensory and motor grossly intact. Cranial nerves grossly intact. Psych: Patient confrontational; did not want to continue conversing with myself or nursing staff A/P Assessment and Plan 45-year-old male with chronic gastroparesis: Problem List: (1) Hypertension Status: Acute Plan: -Patient agrees to IV Vasotec x1 -Continue Amlodipine 5mg -Continue PRN Clonidine 0.1mg (SBP >170) Impression: Persistently elevated BP over past several days; patient has declined scheduled amlodipine and PRN antihypertensives (2) Noncompliance Status: Acute Plan: -Attempt to encourage compliance and find common ground -Concern exists for inadequate diagnosis and treatment due to patient refusing care Impression: Patient has refused antihypertensives, antibiotic therapy (Levaquin , Azithromycin), laboratory blood work x2, and desire for imaging during hospitalization. This has been associated with patient disrespect towards physician team and nursing staff (3) Chronic abdominal pain Status: Chronic Plan: Dilaudid 1 mg every 2 hours when necessary BRKP -Will add Toradol 30mg IV q6 hrs -Will hold and recheck BMP in case NSAID will aggravate renal function -Will add home oral Dilaudid 8mg PO; will make q6hrs -Will attempt to obtain records from prior hospitalization Impression: Abdominal pain with emesis; none during hospitalization. Patient has refused CT scan due to having 14 CT scans. Patient with tolerance to pain medication as he takes by mouth Dilaudid at home. Abdomen XR- 3mm calcification over R kidney. Focal consolidation or atelectasis at R medial lung base (4) Diabetes mellitus type 1 Status: Chronic Plan: -Levemir 10 U BID -Low dose SSI -Glucagon for hypoglycemia per patient request Impression: Patient on Lantus 20 U qHS at home. Blood glucoses have fluctuated significantly during admission (488mg/dl- 33 mg/dl) (5) Pneumonia Status: Acute Plan: -Will treat with Levaquin 750mg daily (patient has been refusing) Impression: Patient reports recent respiratory infection. Patient with LLL infiltrate; subsequent AP with underinflation did not show infiltrate Antibiotic History: Ceftriaxone 1gm x2 doses Patient refused prior Azithromycin (6) Acute kidney injury Status: Acute Plan: -Will recheck BMP today -Will encourage fluid intake -Will start maintenance NS -Monitor I&O Impression: Cr 0.98 on admission; 1.33 today. Unclear how much patient eating/drinking (7) DVT Prophylaxis Status: Acute Plan: Bilateral SCD's Heparin 5K U q8hrs (8) Fluids, Electrolytes, and Nutrition Status: Acute Plan: Diet: Regular basic Fluids: Maintenance NS Electrolytes: Monitor and replete as needed John Westbrook MD R2 Apr 05, 2016 09:39
[2016-04-05] MEDS ORDERED: ENALAPRILAT 1.25 MG/ML VIAL IV PUSH ONE (10:00)
[2016-04-05] MEDS: KETOROLAC TROMETHAMINE 30 MG/ML (IVP) VIAL IV PUSH SCH ×3 (11:04→23:47)
[2016-04-05] MEDS: SODIUM CHLORIDE 0.9% FLUSH 5 ML FLUSH FLUSH PRN ×3 (11:05→17:42)
[2016-04-05] MEDS: LEVOFLOXACIN 750 MG PREMIX INJ 150 ML IV SCH (17:48)
[2016-04-05 20:03] LABS: BASOPHIL # 0.2 TH/MM3 (0-0.2); BASOPHIL % 1.2 % (0.0-2.0); EOSINOPHIL # 0.2 TH/MM3 (0-0.4); EOSINOPHIL % 1.4 % (0.0-4.0); HEMO FLAGS DIFF FINAL; LYMPH % 10.1 % (9.0-44.0); LYMPHOCYTE # 1.5 TH/MM3 (1.0-4.8); MEAN CELL VOLUME 84.5 FL (80.0-100.0); MEAN CORPUSCULAR HEMOGLOBIN 26.8 PG (27.0-34.0); MEAN CORPUSCULAR HGB CONC 31.8 % (32.0-36.0); MONO % 4.6 % (0.0-8.0); NEUT % 82.7 % (16.0-70.0); PLATELET COUNT 445 TH/MM3 (150-450); RED BLOOD COUNT 4.15 MIL/MM3 (4.50-5.90); RED CELL DISTRIBUTION WIDTH 14.8 % (11.6-17.2); WHITE BLOOD COUNT 14.5 TH/MM3 (4.0-11.0)
[2016-04-05 20:48] LABS: BICARBONATE 30.9 MEQ/L (21.0-32.0); POTASSIUM 4.5 MEQ/L (3.5-5.1)
[2016-04-06] VITALS: BP 175/101; PULSE 89; RESP 17; TEMP 97.5; O2SAT 99
[2016-04-06] MEDS: diphenhydrAMINE HCL 50 MG/ML VIAL IV PUSH PRN ×6 (01:53→22:25)
[2016-04-06] MEDS: HYDROmorphone HCL PF 1 MG/ML VIAL IV PUSH PRN ×11 (01:54→22:25)
[2016-04-06 04:00] VITALS: BP 155/92; PULSE 89; RESP 18; TEMP 97.3; O2SAT 98
[2016-04-06] MEDS: KETOROLAC TROMETHAMINE 30 MG/ML (IVP) VIAL IV PUSH SCH ×3 (05:53→17:32)
[2016-04-06] MEDS: SODIUM CHLOR 0.9% 1000 ML INJ 1,000 ML IV SCH ×2 (05:53→16:18)
[2016-04-06] MEDS: INSULIN ASPART SUPPLEMENTAL SCALE SQ SCH ×4 (06:02→21:00)
[2016-04-06 08:00] VITALS: BP 151/88; PULSE 88; RESP 18; TEMP 98.6; O2SAT 96
[2016-04-06] MEDS: HEPARIN SODIUM - SQ 10,000 UNITS/ML VIAL SQ SCH ×2 (08:00→16:00)
[2016-04-06] MEDS: INSULIN DETEMIR 100 UNITS/ML VIAL SQ SCH ×3 (08:13→22:30)
[2016-04-06] MEDS: amLODIPine BESYLATE 5 MG TAB PO SCH (08:13)
[2016-04-06] MEDS: DOCUSATE SODIUM 50 MG/SENNA 8.6 MG TAB PO SCH ×2 (08:22→20:34)
[2016-04-06] MEDS: SODIUM CHLORIDE 0.9% FLUSH 5 ML FLUSH FLUSH SCH ×2 (08:22→20:34)
[2016-04-06 10:49] LABS: BACTERIA, URINE RARE /hpf; BLOOD, URINE NEG (NEG); COMMENT (UR) CULT NOT INDICATED; CULTURE IF INDICATED CULT NOT INDICATED; GLUCOSE,URINE 1000 mg/dL (NEG); KETONE, URINE NEG (NEG); MUCUS URINE FEW /lpf (OCC); NITRITE,URINE NEG (NEG); PH, URINE 6.5 (5.0-8.5); SQUAMOUS EPITHELIAL CELL URINE <1 /hpf (0-5); URINE COLOR YELLOW (YELLW/STRAW)
[2016-04-06 12:00] VITALS: BP 141/89; PULSE 103; RESP 16; TEMP 97; O2SAT 95
--- NOTE | 2016-04-06 13:21 | HHI.FPPN ---
Subjective Remarks No acute events overnight. Afebrile, vital signs stable. Patient continues to complain of abdominal pain. He also complains of left forearm pain which he believes is his IV starting to infiltrate. He states he is continuing to have difficulty eating. He will not take by mouth antibiotics or by mouth pain medication because he states his stomach cannot tolerate it. (Doris Paz MD R3) Objective Vitals Vital Signs Date Time Temp Pulse Resp B/P Pulse Ox O2 Delivery O2 Flow Rate FiO2 04/06/16 08:00 98.6 88 18 151/88 96 04/06/16 04:00 97.3 89 18 155/92 98 04/06/16 00:00 97.5 89 17 175/101 99 04/05/16 20:00 98.9 91 18 161/91 96 04/05/16 15:00 96.2 100 20 135/90 94 I/O 04/05/16 04/05/16 04/05/16 04/06/16 04/06/16 04/06/16 07:00 15:00 23:00 07:00 15:00 23:00 Intake Total 1440 ml 120 ml 720 ml 720 ml Output Total 3 ml Balance 1440 ml 117 ml 720 ml 720 ml Intake Oral 1440 ml 120 ml 720 ml 720 ml Output Urine Total 3 ml # Voids 3 4 4 # Bowel Movements 0 1 (Doris Paz MD R3) Result Diagram: 04/05/16 1600 04/05/16 1600 Objective Remarks Gen.: No acute distress ENT: Poor dentition Cardiovascular: Grossly normal peripheral perfusion. Respiratory: Lungs clear to auscultation bilaterally; no crackling appreciated. Abdomen: Soft, nondistended. Mild tenderness to palpation; no guarding/wincing Musculoskeletal: No edema. Skin: No obvious rashes or erythema. Appears pale Neuro: Sensory and motor grossly intact. Cranial nerves grossly intact. Psych: Patient confrontational; did not want to continue conversing with myself or nursing staff (Doris Paz MD R3) A/P Assessment and Plan 45-year-old male with chronic gastroparesis who presents with intractable abdominal pain and nausea/vomiting. Discharge Planning To home once clinically improved (Doris Paz MD R3) Attending Attestation Patient seen and examined. Case reviewed and discussed Agree with plan of care as discussed with me and documented in the resident note. (Bibiana Golden MD) Problem List: (1) Hypertension Status: Acute Plan: -Patient agrees to IV Vasotec x1 -Continue Amlodipine 5mg -Continue PRN Clonidine 0.1mg (SBP >170) Impression: Persistently elevated BP over past several days; patient has declined scheduled amlodipine and PRN antihypertensives (2) Noncompliance Status: Acute Plan: -Attempt to encourage compliance and find common ground -Concern exists for inadequate diagnosis and treatment due to patient refusing care Impression: Patient has refused antihypertensives, antibiotic therapy (Levaquin , Azithromycin), laboratory blood work x2, and desire for imaging during hospitalization. This has been associated with patient disrespect towards physician team and nursing staff (3) Chronic abdominal pain Status: Chronic Plan: Dilaudid 1 mg every 2 hours when necessary BRKP Discontinue Toradol given a contact -Will add home oral Dilaudid 8mg PO; will make q6hrs -Will attempt to obtain records from prior hospitalization Impression: Abdominal pain with emesis; none during hospitalization. Patient has refused CT scan due to having 14 CT scans. Patient with tolerance to pain medication as he takes by mouth Dilaudid at home. Abdomen XR- 3mm calcification over R kidney. Focal consolidation or atelectasis at R medial lung base (4) Diabetes mellitus type 1 Status: Chronic Plan: -Levemir 10 U BID -Low dose SSI -Glucagon for hypoglycemia per patient request Impression: Patient on Lantus 20 U qHS at home. Blood glucoses have fluctuated significantly during admission (488mg/dl- 33 mg/dl) (5) Pneumonia Status: Acute Plan: Patient with chest x-ray suspicious for early forming pneumonia. He has been refusing Levaquin. Now with leukocytosis to 14.5. Lungs clear to auscultation on exam. DC Levaquin Rocephin/azithromycin IV Antibiotic History: Ceftriaxone 1gm x2 doses Patient refused prior Azithromycin (6) Acute kidney injury Status: Acute Plan: Patient refusing IV fluids. Creatinine 0.98 on admission, 1.58 today. Discontinue Levaquin Discontinue Toradol Encourage by mouth intake Monitor I&O (7) DVT Prophylaxis Status: Acute Plan: Bilateral SCD's Heparin 5K U q8hrs (8) Fluids, Electrolytes, and Nutrition Status: Acute Plan: Diet: Regular basic Fluids: Maintenance NS Electrolytes: Monitor and replete as needed (Doris Paz MD R3) Doris Paz MD R3 Apr 06, 2016 13:21 Bibiana Golden MD Apr 08, 2016 17:02
[2016-04-06] MEDS ORDERED: cefTRIAXone INJ 1,000 MG in SODIUM CHLORIDE 0.9% INJ 100 ML IV SCH (14:00)
[2016-04-06] MEDS ORDERED: AZITHROMYCIN INJ 500 MG in SODIUM CHLOR 0.9% 250 ML INJ 250 ML IV ONE (15:00)
[2016-04-06 16:00] VITALS: BP 120/89; PULSE 100; RESP 18; TEMP 97.2; O2SAT 99
[2016-04-06] MEDS: LIDOCAINE HCL 1% 20 ML VIAL OTHER SCH (16:39)
[2016-04-06] MEDS: AZITHROMYCIN 250 MG TAB PO SCH (16:54)
[2016-04-06 20:00] VITALS: BP 134/84; PULSE 108; RESP 18; TEMP 97.7; O2SAT 95
[2016-04-06] MEDS: GLUCAGON 1 MG/ML VIAL OTHER PRN (23:55)
[2016-04-07] VITALS: BP 148/83; PULSE 104; RESP 17; TEMP 97.5; O2SAT 95
[2016-04-07] MEDS: SODIUM CHLOR 0.9% 1000 ML INJ 1,000 ML IV SCH ×3 (00:01→17:11)
[2016-04-07] MEDS: HYDROmorphone HCL PF 1 MG/ML VIAL IV PUSH PRN ×11 (00:28→21:45)
[2016-04-07] MEDS: diphenhydrAMINE HCL 50 MG/ML VIAL IV PUSH PRN ×5 (02:36→19:46)
[2016-04-07 04:00] VITALS: BP 141/77; PULSE 80; RESP 17; TEMP 97.1; O2SAT 97
[2016-04-07] MEDS: KETOROLAC TROMETHAMINE 30 MG/ML (IVP) VIAL IV PUSH SCH ×3 (06:00→11:06)
[2016-04-07] MEDS: INSULIN ASPART SUPPLEMENTAL SCALE SQ SCH ×3 (06:30→18:36)
[2016-04-07] MEDS: HEPARIN SODIUM - SQ 10,000 UNITS/ML VIAL SQ SCH ×3 (07:27→16:00)
[2016-04-07 07:50] VITALS: BP 149/88; PULSE 91; RESP 20; TEMP 96.9; O2SAT 20
[2016-04-07] MEDS: INSULIN DETEMIR 100 UNITS/ML VIAL SQ SCH (08:57)
[2016-04-07] MEDS: SODIUM CHLORIDE 0.9% FLUSH 5 ML FLUSH FLUSH SCH ×2 (08:57→19:47)
[2016-04-07] MEDS: DOCUSATE SODIUM 50 MG/SENNA 8.6 MG TAB PO SCH ×2 (09:00→19:47)
[2016-04-07] MEDS: AZITHROMYCIN 250 MG TAB PO SCH (09:00)
[2016-04-07 09:08] LABS: AUTOMATED NEUTROPHIL # 5.9 TH/MM3 (1.8-7.7); BASOPHIL # 0.1 TH/MM3 (0-0.2); BASOPHIL % 1.2 % (0.0-2.0); EOSINOPHIL # 0.3 TH/MM3 (0-0.4); EOSINOPHIL % 3.2 % (0.0-4.0); HEMATOCRIT 36.5 % (39.0-51.0); HEMO FLAGS DIFF FINAL; LYMPH % 23.6 % (9.0-44.0); LYMPHOCYTE # 2.1 TH/MM3 (1.0-4.8); MEAN CELL VOLUME 82.5 FL (80.0-100.0); MEAN CORPUSCULAR HEMOGLOBIN 26.8 PG (27.0-34.0); MEAN CORPUSCULAR HGB CONC 32.5 % (32.0-36.0); MONO % 6.5 % (0.0-8.0); NEUT % 65.5 % (16.0-70.0); PLATELET COUNT 441 TH/MM3 (150-450); RED BLOOD COUNT 4.42 MIL/MM3 (4.50-5.90); RED CELL DISTRIBUTION WIDTH 14.9 % (11.6-17.2)
--- NOTE | 2016-04-07 09:19 | HHI.FPPN ---
Subjective Remarks Mr. Bean was afebrile with intermittent HTN overnight; max SBP of 149. Patient has been intermittently tachycardic to ~108 bpm. Blood glucoses have ranged from 74-315 overnight. Patient reports continued abdominal pain and nausea; she reports still eating only several bites of food at a time. Patient does not report shortness of breath or dysuria. Per review of EMR 04/06, patient took Amlodipine 5mg and Rocephin IM but has continued to decline other medications. Objective Vitals Vital Signs Date Time Temp Pulse Resp B/P Pulse Ox O2 Delivery O2 Flow Rate FiO2 04/07/16 07:50 96.9 91 20 149/88 20 04/07/16 04:00 97.1 80 17 141/77 97 04/07/16 00:00 97.5 104 17 148/83 95 04/06/16 20:00 97.7 108 18 134/84 95 04/06/16 16:00 97.2 100 18 120/89 99 04/06/16 12:00 97.0 103 16 141/89 95 I/O 04/06/16 04/06/16 04/06/16 04/07/16 04/07/16 04/07/16 07:00 15:00 23:00 07:00 15:00 23:00 Intake Total 720 ml 960 ml 720 ml Balance 720 ml 960 ml 720 ml Intake Oral 720 ml 960 ml 720 ml # Voids 4 4 4 4 # Bowel Movements 1 Result Diagram: 04/05/16 1600 04/05/16 1600 Imaging Last Impressions Chest X-Ray 04/03/16 0000 Signed Impressions: Service Date/Time: March 08:45 - CONCLUSION: Underinflated examination with mild atelectasis at lung bases. Otherwise, no acute cardiopulmonary abnormality is identified. New Mari MD Abdomen X-Ray 04/01/16 0000 Signed Impressions: Service Date/Time: Friday, April 01, 2016 19:08 - CONCLUSION: 1. 3 mm calcification projecting over the right kidney. 2. Focal area of consolidation or atelectasis at the medial right lung base. New Garvin MD Objective Remarks Gen.: No acute distress ENT: Poor dentition Cardiovascular: Mild tachycardia, regular rhythm without murmurs. Normal peripheral perfusion. Respiratory: Normal rate. Lungs clear to auscultation bilaterally; no crackling appreciated. Abdomen: Soft, nondistended. Mild tenderness to palpation; no guarding/wincing Musculoskeletal: No edema. Skin: No obvious rashes or erythema. Appears pale Neuro: Sensory and motor function grossly intact. Cranial nerves grossly intact. A/P Assessment and Plan 45-year-old male with chronic gastroparesis who presents with intractable abdominal pain and nausea/vomiting. Discharge Planning To home once clinically improved Problem List: (1) Chronic abdominal pain Status: Chronic Plan: Dilaudid 1 mg every 2 hours when necessary BRKP -Will add home oral Dilaudid 8mg PO; will make q6hrs -Will attempt to obtain records from prior hospitalization Impression: Abdominal pain with emesis; none during hospitalization. Patient has refused CT scan due to having 14 CT scans. Patient with tolerance to pain medication as he takes by mouth Dilaudid at home. Abdomen XR- 3mm calcification over R kidney. Focal consolidation or atelectasis at R medial lung base (2) Hypertension Status: Acute Plan: -Increase Amlodipine to 10mg daily -Continue PRN Clonidine 0.1mg (SBP >170) Impression: Persistently elevated BP recently; patient has intermittently declined scheduled amlodipine and PRN antihypertensives. Some improvement after patient taking Amlodipine 5mg daily; max BP in last 24 hrs was 149. (3) Noncompliance Status: Acute Plan: -Attempt to encourage compliance and find common ground -Concern exists for inadequate diagnosis and treatment due to patient refusing care Impression: Patient has frequently refused antihypertensives, antibiotic therapy (Levaquin, Azithromycin), laboratory blood work, and desire for imaging during hospitalization. This has been associated with patient disrespect towards physician team and nursing staff (4) Diabetes mellitus type 1 Status: Chronic Plan: -Levemir 10 U BID -Low dose SSI -Glucagon for hypoglycemia per patient request Impression: Patient on Lantus 20 U qHS at home. Blood glucoses have fluctuated significantly during admission (488mg/dl- 33 mg/dl) (5) Pneumonia Status: Acute Plan: Continue IV Rocephin 1gm daily -Continue azithromycin IV (patient has been refusing)azih Impression: Patient with chest x-ray suspicious for early forming pneumonia. He has been refusing Levaquin. 04/06 WBC of 14.5. Lungs clear to auscultation on exam. Antibiotic History: Ceftriaxone 1gm x2 doses Patient refused prior Azithromycin Patient refused prior Levofloxacin (6) Leukocytosis Status: Acute Plan: -Recheck CBC 04/07 -Lactic acid pending Impression: WBC 14.5 04/06. CXR suggestive of pneumonia. UA 04/06 not suggestive of UTI (7) Acute kidney injury Status: Acute Plan: Encourage by mouth intake Monitor I&O -Recheck Cr 04/07 Impression: Patient refusing IV fluids. Creatinine 0.98 on admission-> 1.58 04/06 (8) DVT Prophylaxis Status: Acute Plan: Bilateral SCD's Heparin 5K U q8hrs (has been refusing) (9) Fluids, Electrolytes, and Nutrition Status: Acute Plan: Diet: Regular basic Fluids: Maintenance NS (has refused) Electrolytes: Monitor and replete as needed John Westbrook MD R2 Apr 07, 2016 09:19
[2016-04-07 09:30] LABS: BICARBONATE 29.5 MEQ/L (21.0-32.0); POTASSIUM 4.1 MEQ/L (3.5-5.1)
[2016-04-07 11:50] VITALS: BP 161/91; PULSE 89; RESP 20; TEMP 96.7; O2SAT 97
[2016-04-07] MEDS ORDERED: AZITHROMYCIN INJ 250 MG in SODIUM CHLOR 0.9% 250 ML INJ 250 ML IV SCH ×4 (14:00)
[2016-04-07 15:45] VITALS: BP 160/83; PULSE 85; RESP 20; TEMP 97.7; O2SAT 97
[2016-04-07] MEDS: LIDOCAINE HCL 1% 20 ML VIAL OTHER SCH (16:57)
--- NOTE | 2016-04-07 17:30 | PD.CONS ---
HPI History of Present Illness Patient declined a consult from Gastroenterolgy, discussed with Dr. Cantu. [facility] Coded Allergies: Compazine (Verified Allergy, Severe, Anaphylaxis, 04/01/16) Reglan (Verified Allergy, Severe, Anaphylaxis, 04/01/16) Adhesives (Verified Allergy, Intermediate, Rash, 04/01/16) "PEELS MY SKIN OFF" Uncoded Allergies: TEGADERM (Allergy, Severe, 05/19/15) "PEELS MY SKIN OFF" GI Exam Vitals I&O Vital Signs Date Time Temp Pulse Resp B/P Pulse Ox O2 Delivery O2 Flow Rate FiO2 04/07/16 15:45 97.7 85 20 160/83 97 04/07/16 11:50 96.7 89 20 161/91 97 04/07/16 07:50 96.9 91 20 149/88 20 04/07/16 04:00 97.1 80 17 141/77 97 04/07/16 00:00 97.5 104 17 148/83 95 04/06/16 20:00 97.7 108 18 134/84 95 I/O 04/06/16 04/06/16 04/06/16 04/07/16 04/07/16 04/07/16 07:00 15:00 23:00 07:00 15:00 23:00 Intake Total 720 ml 960 ml 720 ml 240 ml Output Total 6 ml Balance 720 ml 960 ml 720 ml 234 ml Intake Oral 720 ml 960 ml 720 ml 240 ml Output Urine Total 6 ml # Voids 4 4 4 4 # Bowel Movements 1 1 Laboratory Test 04/07/16 08:42 White Blood Count 9.0 TH/MM3 Red Blood Count 4.42 MIL/MM3 Hemoglobin 11.9 GM/DL Hematocrit 36.5 % Mean Corpuscular Volume 82.5 FL Mean Corpuscular Hemoglobin 26.8 PG Mean Corpuscular Hemoglobin 32.5 % Concent Red Cell Distribution Width 14.9 % Platelet Count 441 TH/MM3 Mean Platelet Volume 7.9 FL Neutrophils (%) (Auto) 65.5 % Lymphocytes (%) (Auto) 23.6 % Monocytes (%) (Auto) 6.5 % Eosinophils (%) (Auto) 3.2 % Basophils (%) (Auto) 1.2 % Neutrophils # (Auto) 5.9 TH/MM3 Lymphocytes # (Auto) 2.1 TH/MM3 Monocytes # (Auto) 0.6 TH/MM3 Eosinophils # (Auto) 0.3 TH/MM3 Basophils # (Auto) 0.1 TH/MM3 CBC Comment DIFF FINAL Differential Comment Sodium Level 133 MEQ/L Potassium Level 4.1 MEQ/L Chloride Level 96 MEQ/L Carbon Dioxide Level 29.5 MEQ/L Anion Gap 8 MEQ/L Blood Urea Nitrogen 27 MG/DL Creatinine 1.46 MG/DL Estimat Glomerular Filtration 52 ML/MIN Rate Random Glucose 65 MG/DL Lactic Acid Level 0.9 mmol/L Calcium Level 9.0 MG/DL Physical Examination HEENT: Pupils round and reactive to light; normocephalic; atraumatic; no jaundice. Throat is clear. NECK: Neck is supple, no JVD, no lymphadenopathy. CHEST: Chest is clear to auscultation and percussion. CARDIAC: Regular rate and rhythm with no murmur gallop or rubs. ABDOMEN: Soft, nondistended, nontender; no hepatosplenomegaly; bowel sounds are present in all four quadrants. EXTREMITIES: No clubbing, cyanosis, or edema. SKIN: Normal; no rash; no jaundice. MILK DELIVERER: No focal deficits; alert and oriented times three. Brandi Jacobo Apr 07, 2016 17:30
[2016-04-07 20:00] VITALS: BP 160/85; PULSE 105; RESP 16; TEMP 99.1; O2SAT 97
[2016-04-08] VITALS: BP 142/78; PULSE 95; RESP 20; TEMP 96.7; O2SAT 95
[2016-04-08] MEDS: HEPARIN SODIUM - SQ 10,000 UNITS/ML VIAL SQ SCH
[2016-04-08] MEDS: INSULIN DETEMIR 100 UNITS/ML VIAL SQ SCH (00:11)
[2016-04-08] MEDS: HYDROmorphone HCL PF 1 MG/ML VIAL IV PUSH PRN (00:11)
[2016-04-08] MEDS: INSULIN ASPART SUPPLEMENTAL SCALE SQ SCH (00:12)
[2016-04-08] MEDS: SODIUM CHLOR 0.9% 1000 ML INJ 1,000 ML IV SCH (02:30)
--- NOTE | 2016-04-08 03:48 | PD.AMA ---
Against Medical Advice Note Diagnosis: (1) Chronic abdominal pain (2) Diabetes mellitus type 1 (3) Pneumonia (4) Noncompliance (5) Hypertension (6) Leukocytosis Discharge Disposition: Against Medical Advice Pt Condition on Discharge: Stable AMA Statement Patient Antelmo Bean has decided to leave the hospital against medical advice. He was admitted for pain and N/V management due to chronic gastroparesis. He refused GI consult. He has been receiving IV pain medications until IV line infiltrated this morning, and refuses PO pain medications which are ordered. Vascular access team was re-consulted. His most recent VS were unremarkable and he has been refusing medical interventions throughout his stay. This patient has the capacity to refuse care and understands the risks of leaving, including permanent disability and/or , and has had an opportunity to ask questions about his condition. The patient has been informed that he may return for care at any time, and follow up has been advised. STEPHON Ferrer, PGY2 Jacqueline Choe MD R1 Apr 08, 2016 03:48
--- NOTE | 2016-07-01 07:31 | HHI.DS ---
Discharge Summary Admission Date Apr 04, 2016 at 12:15 Discharge Date: Apr 08, 2016 Admitting Diagnosis acute on chronic abdominal pain/pain control (1) Chronic abdominal pain Diagnosis: Principal Plan: Dilaudid 1 mg every 2 hours when necessary BRKP -Will add home oral Dilaudid 8mg PO; will make q6hrs -Will attempt to obtain records from prior hospitalization Impression: Abdominal pain with emesis; none during hospitalization. Patient has refused CT scan due to having 14 CT scans. Patient with tolerance to pain medication as he takes by mouth Dilaudid at home. Abdomen XR- 3mm calcification over R kidney. Focal consolidation or atelectasis at R medial lung base (2) Hypertension Diagnosis: Secondary Plan: -Increase Amlodipine to 10mg daily -Continue PRN Clonidine 0.1mg (SBP >170) Impression: Persistently elevated BP recently; patient has intermittently declined scheduled amlodipine and PRN antihypertensives. Some improvement after patient taking Amlodipine 5mg daily; max BP in last 24 hrs was 149. (3) Noncompliance Diagnosis: Secondary Plan: -Attempt to encourage compliance and find common ground -Concern exists for inadequate diagnosis and treatment due to patient refusing care Impression: Patient has frequently refused antihypertensives, antibiotic therapy (Levaquin, Azithromycin), laboratory blood work, and desire for imaging during hospitalization. This has been associated with patient disrespect towards physician team and nursing staff (4) Diabetes mellitus type 1 Diagnosis: Secondary Plan: -Levemir 10 U BID -Low dose SSI -Glucagon for hypoglycemia per patient request Impression: Patient on Lantus 20 U qHS at home. Blood glucoses have fluctuated significantly during admission (488mg/dl- 33 mg/dl) (5) Pneumonia Diagnosis: Secondary Plan: Continue IV Rocephin 1gm daily -Continue azithromycin IV (patient has been refusing)az Impression: Patient with chest x-ray suspicious for early forming pneumonia. He has been refusing Levaquin. 04/06 WBC of 14.5. Lungs clear to auscultation on exam. Antibiotic History: Ceftriaxone 1gm x2 doses Patient refused prior Azithromycin Patient refused prior Levofloxacin (6) Leukocytosis Diagnosis: Secondary Plan: -Recheck CBC 04/07 -Lactic acid pending Impression: WBC 14.5 04/06. CXR suggestive of pneumonia. UA 04/06 not suggestive of UTI (7) Acute kidney injury Diagnosis: Secondary Plan: Encourage by mouth intake Monitor I&O -Recheck Cr 04/07 Impression: Patient refusing IV fluids. Creatinine 0.98 on admission-> 1.58 04/06 [facility] Gastroenterology- patient declined Brief History 45-year-old male with a past medical history significant for chronic abdominal pain secondary to vagal stimulator placement for gastroparesis from diabetes presents to the ED for the second day in a row with acute on chronic abdominal pain. The patient lives in [place] and had his second vagal stimulator placed 2 years ago. He endorses 3 days of dry heaving/emesis that is bilious but nonbloody. He states he often has these episodes of acute on chronic abdominal pain that require hospitalization and management with pain medications. He is on oral Dilaudid at home, 8 mg 34 times per day. Patient denies any chest pain /shortness of breath. In the emergency department, the patient refused any imaging. Labs were unremarkable. Imaging Last Impressions Chest X-Ray 04/03/16 0000 Signed Impressions: Service Date/Time: March 08:45 - CONCLUSION: Underinflated examination with mild atelectasis at lung bases. Otherwise, no acute cardiopulmonary abnormality is identified. New Mari MD Abdomen X-Ray 04/01/16 0000 Signed Impressions: Service Date/Time: Friday, April 01, 2016 19:08 - CONCLUSION: 1. 3 mm calcification projecting over the right kidney. 2. Focal area of consolidation or atelectasis at the medial right lung base. New Garvin MD PE at Discharge Gen.: No acute distress ENT: Poor dentition Cardiovascular: Mild tachycardia, regular rhythm without murmurs. Normal peripheral perfusion. Respiratory: Normal rate. Lungs clear to auscultation bilaterally; no crackling appreciated. Abdomen: Soft, nondistended. Mild tenderness to palpation; no guarding/wincing Musculoskeletal: No edema. Skin: No obvious rashes or erythema. Appears pale Neuro: Sensory and motor function grossly intact. Cranial nerves grossly intact. Hospital Course PATIENT LEFT AGAINST MEDICAL ADVICE 04/08 Mr. Bean is a 45-year-old male with history of T1DM and chronic gastroparesis s/p vagal nerve stimulator placement who presented 04/04 with intractable abdominal pain and nausea/vomiting. Patient was provided with IV and PO opiate pain control for chronic abdominal pain (IV for lack of adequate oral intake/gastroparesis severity), and XR imaging of abdomen was obtained and found to be unremarkable with exception of incidental R renal calcification. Patient declined additional imaging such as additional XR or CT imaging due to concerns regarding radiation exposure. Patient also declined gastroenterology consultation during hospitalization. Patient was very resistant to efforts to wean opiate pain medications. Patient's oral intake seemed to vary during hospitalization, with EMR documentation suggesting adequate oral intake frequently but patient reporting lack of intake. Patient was found to be hypertensive during hospitalization and was treated with Amlodipine and PRN Clonidine; patient declined antihypertensives frequently. Patient was also found to have leukocytosis during hospitalization; CXR was obtained and found to be suggestive of possible pneumonia. Patient's blood glucose levels were controlled during hospitalization with Lantus 20 U qHS; his blood glucose levels were volatile. Patient ultimately left AMA 1/ due to frustrations regarding his IV infiltrating and his reluctance to attempt PO pain control of his abdominal pain. Patient was advised of risks of leaving AMA and was counselled regarding his ability to return for further care and need for follow- up of his gastroparesis. Pt Condition on Discharge: John Chakraborty MD R2 Jul 01, 2016 07:31
== END 2016-04-08 03:59 | disposition left against medical advice (07) | DRG 73 ==
LOC: NEPC 08:35 → NEDA 13:42 → HOCB 18:15 → OBSVTOIN 04-04 12:15
PROVIDERS: ADMIT Family Medicine; ATTEND Family Medicine
DX: E10.43 Type 1 diabetes mellitus with diabetic autonomic (poly)neuropathy (principal); J18.9 Pneumonia, unspecified organism; N17.9 Acute kidney failure, unspecified; E10.65 Type 1 diabetes mellitus with hyperglycemia; K31.84 Gastroparesis; G89.29 Other chronic pain; I10 Essential (primary) hypertension; Z91.19 Patient's noncompliance with other medical treatment and regimen; Z91.14 Patient's other noncompliance with medication regimen; Z79.4 Long term (current) use of insulin; Z72.0 Tobacco use; Z88.8 Allergy status to other drugs, medicaments and biological substances
CPT/HCPCS: 71010; 71020; 74020; 76937; 80048; 80053; 81001; 82948; 83605; 83690; 85025; 96372; 96374; 96375; C9113; G0378; J0696; J1170; J1200; J1610; J1815; J1885; J2405; J7030

== ENCOUNTER 2016-09-22 19:59 | Emergency (ER) | payer MEDICARE ==
[~2016-09-22] VITALS: Ht 185.4 cm; Wt 77.0 kg
[2016-09-22 20:01] VITALS: BP 174/84; PULSE 84; RESP 16; TEMP 98.8; O2SAT 100
--- NOTE | 2016-09-22 21:33 | PD ---
HPI Chief Complaint: Abdominal Pain Time Seen by Provider: 21:14 Travel History International Travel<30 days: No Contact w/Intl Traveler<30days: No Traveled to known affect area: No History of Present Illness HPI The patient is a 45 year old male who presents to the [facility] emergency department with a history of chronic abdominal pain that worsened today. He reports that the pain is Sharp and aching in character. He reports that the location of the pain is Above a stimulator implant placement in left upper quadrant. He has had no vomiting today. His last emesis was a few days ago. He denies having any diarrhea. His Last BM was in the waiting room. He denies having any blood in his stool or black or tarry stools. He denies having any mucus in his stool. The patient's medical history is complicated by having type 1 diabetes mellitus for the last 37 years with a history of gastroparesis and chronic abdominal pain managed with Dilaudid and Zofran at home. He is visiting from [place]. The patient reports that he would like to avoid having IV access obtained as he is a difficult stick. The patient reports that his symptoms usually improve with an IM injection of Dilaudid and Phenergan. The patient reports that he would also like to avoid imaging as he has had 14 CT scans of the abdomen and pelvis done in the past. He reports that he has also undergone 9 endoscopies. The patient's blood sugar was reportedly shocked last at 7:30 PM and was 211. He reports that he covered this with 6 units of NovoLog. He reports that at 10 PM he usually takes his 20 units of Lantus insulin. On review of systems, the patient denies any recent fevers, cough, congestion, neck pain, chest pain, shortness of breath, urinary symptoms, or neurologic symptoms. [facility] Past Medical History Narrative Medical The patient's past medical history is significant for type 1 diabetes mellitus, history of gastroparesis, history of chronic abdominal pain Cancer: No Cardiovascular Problems: No Diabetes: Yes Patient Takes Glucophage: Yes Diminished Hearing: No Endocrine: No Gastrointestinal Disorders: Yes (GASTROPARESIS) Genitourinary: No Implanted Vascular Access Dvce: Yes Musculoskeletal: No Neurologic: No Psychiatric: No Reproductive: No Respiratory: No Immunizations Current: Yes Tetanus Vaccination: Unknown Influenza Vaccination: No Past Surgical History Narrative Surgical The patient's past surgical history is significant for a vagal simulator implant 2, history of GJ tube feeding tube placement 2, history of an Infuse-a -Port placement and then removal related to infection, history of left femur ORIF. Abdominal Surgery: Yes (G&J TUBE PLACED AND REMOVED; experimental stimulator for gastroparesis) Body Medical Devices: EXPERIMENTAL STIMULATOR Other Surgery: Yes (LEFT CHEST PORT REMOVED R/T INFECTION, MULTIPLE PICC LINES INSERTED&REMOVED) Social History Alcohol Use: No Tobacco Use: Yes (occasional) Substance Use: No Allergies-Medications (Allergen,Severity, Reaction): Coded Allergies: Compazine (Verified Allergy, Severe, Anaphylaxis, 09/22/16) Reglan (Verified Allergy, Severe, Anaphylaxis, 09/22/16) Adhesives (Verified Allergy, Intermediate, Rash, 09/22/16) "PEELS MY SKIN OFF" Uncoded Allergies: TEGADERM (Allergy, Severe, 05/19/15) "PEELS MY SKIN OFF" Reported Meds & Prescriptions Reported Meds & Active Scripts Active Phenergan Supp (Promethazine HCl) 25 Mg Supp 25 Mg RECTAL Q6H PRN Reported Novolog Inj (Insulin Aspart) 1,000 Unit/10 Ml Vial 0 SQ DIRECTED Sliding Scale as directed. Lantus Inj (Insulin Glargine) 1,000 Unit/10 Ml Vial 20 Units SQ HS Zofran (Ondansetron HCl) 8 Mg Tab 8 Mg PO TID Dilaudid (Hydromorphone HCl) 8 Mg Tab 8 Mg PO Q4HR PRN Review of Systems Except as stated in HPI: all other systems reviewed are Neg General / Constitutional: No: Fever Eyes: No: Visual changes HENT: No: Headaches Cardiovascular: No: Chest Pain or Discomfort Respiratory: No: Shortness of Breath Gastrointestinal: Positive: Nausea, Vomiting, Abdominal Pain, No: Diarrhea, Changes in Bowel Habits, Indigestion, Loss of Appetite Genitourinary: No: Dysuria Musculoskeletal: No: Pain Skin: No Rash Neurologic: No: Weakness Psychiatric: No: Depression Endocrine: No: Polydipsia Hematologic/Lymphatic: No: Easy Bruising Physical Exam Narrative General: The patient is well-developed well-nourished male in no acute distress. Head and Neck exam: Head is normocephalic atraumatic. Eyes: EOMI, pupils are equal round and reactive to light. Nose: Midline septum with pink mucous membranes Mouth: Dentition unremarkable. Moist mucus membranes. Posterior oropharynx is not erythematous. No tonsillar hypertrophy. Uvula midline. Airway patent. Neck: No palpable lymphadenopathy. No nuchal rigidity. No thyromegaly. Cardiovascular: Regular rate and rhythm without murmurs, gallops, or rubs. Lungs: Clear to auscultation bilaterally. No wheezes, rhonchi, or rales. Abdomen: Soft, with reported discomfort on palpation along the upper aspect of the stimulator placed in the left upper quadrant of the abdomen. There is no induration, erythema, or fluctuance noted. There is no crepitus. No guarding, rebound, or rigidity. Negative [place] sign. Normal bowel sounds are audible. No tenderness on palpation of McBurney's point. Extremities: No clubbing, cyanosis, or edema. 2+ pulses in all 4 extremities. No calf tenderness on palpation. Back: No costovertebral angle tenderness to palpation. Neurologic Exam: Grossly nonfocal. Skin Exam: No rash noted. Intact skin that is warm and dry. Data Data Last Documented VS Vital Signs Date Time Temp Pulse Resp B/P Pulse Ox O2 Delivery O2 Flow Rate FiO2 09/22/16 20:43 16 09/22/16 20:01 98.8 84 174/84 100 Orders Blood Glucose (09/22/16 21:22) Urinalysis - C+S If Indicated (09/22/16 21:37) Hydromorphone Pf Inj (Dilaudid Pf Inj) (09/22/16 21:45) Hydroxyzine Hcl Inj (Vistaril Inj) (09/22/16 21:45) Oral Rehydration (09/22/16 21:37) Diphenhydramine Inj (Benadryl Inj) (09/22/16 22:45) Hydromorphone Pf Inj (Dilaudid Pf Inj) (09/22/16 22:45) Labs Laboratory Tests Test 09/22/16 22:45 Urine Color LIGHT-YELLOW Urine Turbidity CLEAR Urine pH 6.5 Urine Specific [place] 1.008 Urine Protein NEG mg/dL Urine Glucose (UA) 300 mg/dL Urine Ketones NEG mg/dL Urine Occult Blood NEG Urine Nitrite NEG Urine Bilirubin NEG Urine Urobilinogen LESS THAN 2.0 MG/DL Urine Leukocyte Esterase NEG Urine RBC LESS THAN 1 /hpf Urine WBC LESS THAN 1 /hpf Urine Mucus FEW /lpf Microscopic Urinalysis Comment CULT NOT INDICATED MDM Medical Decision Making Medical Screen Exam Complete: Yes Emergency Medical Condition: Yes Medical Record Reviewed: Yes Differential Diagnosis DKA, versus exacerbation of gastroparesis, versus exacerbation of chronic abdominal pain Narrative Course During the course of the patients emergency department visit, the patients history, examination, and differential diagnosis were reviewed with the patient. The patient initially refused IV access. The patient reports that he is a very difficult stick. He reports that his pain is an exacerbation of his chronic abdominal pain which is unchanged. The patient reports that normally he responds to being given Dilaudid 4 mg IM, Phenergan 25 mg IM. I explained that I did not feel comfortable administering 4 mg and 1 dose. Instead, the patient was given 2 mg IM followed by Vistaril 25 mg IM as the Phenergan is out of socket this facility. The patient on reexamination of proximal an hour later reports that his pain level has gone from a 9 out of 10 to a 7 out of 10 in severity. He is requesting a second dose as he reports that he believes this will get him down to his usual pain level of 5 out of 10. The patient was given hydromorphone 2 mg IM, Benadryl 25 mg IM, as the patient reports a Benadryl works better for him. The patient's blood sugar on arrival was noted to be 200. The patient was by mouth hydrated with water. The patient had a urine sent for analysis. The patient is tolerating by mouth liquids without any difficulty. The patients laboratory studies were reviewed and remarkable for a urinalysis that shows no evidence of ketones, glucose 300, otherwise unremarkable. The patient was provided a prescription for Phenergan suppositories to be used as needed if Zofran oral dissolving tablet is not helping his nausea. The patient is instructed to follow-up with his primary care physician as soon as possible for reevaluation for improvement. The patient is instructed regarding the importance of taking his usual Lantus insulin dose when he gets home. The patient is resting comfortably and feels better, is alert and in no distress. The patients results and examination findings were discussed with the patient. The repeat examination is unremarkable and benign. The history, exam, diagnostic testing, and current condition do not suggest any significant pathology to warrant further testing, continued ED treatment, admission, or surgical evaluation at this point. The vital signs have been stable. The patient does not have uncontrollable pain, intractable vomiting, or other significant symptoms. The patient's condition is stable and appropriate for discharge. The patient will pursue further outpatient evaluation with a primary care physician or other designated or consulting physician as indicated in the discharge instructions. The patient expressed understanding and was agreeable with this plan. Diagnosis Primary Impression: Chronic abdominal pain Additional Impression: Nausea Referrals: Primary Care Physician Patient Instructions: Abdominal Pain (ED), General Instructions Med/Other Pt SpecificInfo: Prescription(s) given Scripts Promethazine Supp (Phenergan Supp)25 Mg Supp25 Mg RECTAL Q6H PRN (NAUSEA OR VOMITING) #3 SUPP Ref 0 Prov:Aurora Clark MD 09/22/16 Disposition: 01 DISCHARGE HOME Condition: Stable Aurora Clark MD Sep 22, 2016 21:33
[2016-09-22] MEDS ORDERED: HYDROmorphone HCL PF 2 MG/ML VIAL IM ONE ×2 (21:45→22:45)
[2016-09-22] MEDS ORDERED: diphenhydrAMINE HCL 50 MG/ML VIAL IM ONE (22:45)
[2016-09-22] MEDS ORDERED: PROM1SUP7 RECTAL (22:57)
[2016-09-22 23:12] LABS: BLOOD, URINE NEG (NEG); COMMENT (UR) CULT NOT INDICATED; CULTURE IF INDICATED CULT NOT INDICATED; GLUCOSE,URINE 300 mg/dL (NEG); KETONE, URINE NEG (NEG); MUCUS URINE FEW /lpf (OCC); NITRITE,URINE NEG (NEG); PH, URINE 6.5 (5.0-8.5); URINE COLOR LIGHT-YELLOW (YELLW/STRAW)
== END 2016-09-22 23:49 | disposition home or self-care (01) ==
LOC: NEPC 19:59
DX: R10.12 Left upper quadrant pain (principal); G89.29 Other chronic pain; R11.0 Nausea; Z72.0 Tobacco use; E10.8 Type 1 diabetes mellitus with unspecified complications; Z79.4 Long term (current) use of insulin
CPT/HCPCS: 81001; 96372; 99284; J1170; J1200; J3410

== ENCOUNTER 2016-09-23 08:13 | Emergency (ER) | payer MEDICARE ==
[~2016-09-23] VITALS: Ht 185.4 cm; Wt 77.0 kg
[~2016-09-23 08:13] MED LIST changes: +PROM1SUP7 RECTAL; -PROM25TA5 PO
[2016-09-23 08:14] VITALS: BP 214/104; PULSE 108; RESP 17; TEMP 98.3; O2SAT 98
--- NOTE | 2016-09-23 08:38 | PD ---
HPI Chief Complaint: GI Complaint Time Seen by Provider: 08:25 Travel History International Travel<30 days: No Contact w/Intl Traveler<30days: No Traveled to known affect area: No History of Present Illness HPI So 45-year-old male chronic recurrent abdominal pain that he injured his to gastroparesis from long-standing diabetes. He states he started having abdominal pain near his gastric stimulator yesterday. He was seen in the emergency department. His a history of extensive previous evaluations reported is visiting from out of town but is extensive medical history. He does not want labs done. He states he subsequently take a couple days to resolve. History Past Medical History Narrative Medical Diabetes Chronic recurrent abdominal pain attributed to gastroparesis Social History Alcohol Use: No Tobacco Use: Yes (occasional) Allergies-Medications (Allergen,Severity, Reaction): Coded Allergies: Compazine (Verified Allergy, Severe, Anaphylaxis, 09/22/16) Reglan (Verified Allergy, Severe, Anaphylaxis, 09/22/16) Adhesives (Verified Allergy, Intermediate, Rash, 09/22/16) "PEELS MY SKIN OFF" Uncoded Allergies: TEGADERM (Allergy, Severe, 05/19/15) "PEELS MY SKIN OFF" Reported Meds & Prescriptions Reported Meds & Active Scripts Active Phenergan Supp (Promethazine HCl) 25 Mg Supp 25 Mg RECTAL Q6H PRN Reported Novolog Inj (Insulin Aspart) 1,000 Unit/10 Ml Vial 0 SQ DIRECTED Sliding Scale as directed. Lantus Inj (Insulin Glargine) 1,000 Unit/10 Ml Vial 20 Units SQ HS Zofran (Ondansetron HCl) 8 Mg Tab 8 Mg PO TID Dilaudid (Hydromorphone HCl) 8 Mg Tab 8 Mg PO Q4HR PRN Review of Systems Except as stated in HPI: all other systems reviewed are Neg Physical Exam Narrative GENERAL: 45-year-old man, appears uncomfortable, nontoxic. SKIN: Warm and dry. CARDIOVASCULAR: Warm and well perfused. RESPIRATORY: Normal rate and effort. ABDOMINAL: Abdomen flat. Multiple areas of scarring. MUSCULOSKELETAL: No deformities. NEUROLOGICAL: Awake and alert. No gross deficits. Data Data Last Documented VS Vital Signs Date Time Temp Pulse Resp B/P Pulse Ox O2 Delivery O2 Flow Rate FiO2 09/23/16 08:14 98.3 108 17 214/104 98 MDM Medical Decision Making Medical Screen Exam Complete: Yes Emergency Medical Condition: Yes Differential Diagnosis Chronic recurrent abdominal pain, gastroparesis, dehydration, other Narrative Course Medical decision-making 45-year-old male chronic recurrent abdominal pain. Was seen yesterday was given multiple doses of IM hydromorphone and promethazine. Here today with ongoing symptoms. Extensive history of the same. Takes opiates at home. Following initial history, will talk and the patient or guarding treatment plans , I told him that we would be happy to evaluate him, treat his pain, treat his nausea, and ensure there was no dangerous pathology, but that for patients with chronic recurrent abdominal pain I do not believe that opiates are indicated because of their potential for harm and potentiate gastroparesis and narcotic bowel syndrome. Following this, without further discussion, patient stood up, states "you don't know what true pain is", "I'm going to have a stroke and its all on you", "I can believe her tenderness in the out in pain like this". I told the patient that we will be happy to see him, treat his pain, with nonopiate medications treat his vomiting, worked to get him feeling better. I explained that I thought that opiates can worsen long-term symptoms for people with chronic recurrent abdominal pain. Patient states "don't lecture me" and eloped prior to receiving full physical evaluation or treatment. Diagnosis Primary Impression: Drug-seeking behavior Additional Impressions: Chronic abdominal pain Gastroparesis Disposition: 07 AGAINST MEDICAL ADVICE Mazin Santillan MD Sep 23, 2016 08:38
== END 2016-09-23 09:05 | disposition left against medical advice (07) ==
LOC: NEPC 08:13
DX: R10.9 Unspecified abdominal pain (principal); Z76.5 Malingerer [conscious simulation]; G89.29 Other chronic pain; E11.43 Type 2 diabetes mellitus with diabetic autonomic (poly)neuropathy; K31.84 Gastroparesis; Z79.4 Long term (current) use of insulin
CPT/HCPCS: 99281